=== PATIENT | female | born 1965 | race Caucasian/White ===

== ENCOUNTER 2016-09-28 14:55 | Emergency (ER) | payer OTHER ==
[2016-09-28 15:33] VITALS: BP 115/73; PULSE 75; TEMP 98.2; BMI 42.5
[2016-09-28] MEDS ORDERED: KETOROLAC TROMETHAMINE 60 MG/2 ML VIAL IM ONE (15:49)
--- NOTE | 2016-09-28 15:49 | PDOC ---
History of Present Illness - General Chief Complaint: Pain Stated Complaint: RT KNEE PAIN Time Seen by Provider: 09/28/16 15:23 History Source: Patient Exam Limitations: No Limitations - History of Present Illness Initial Comments: 09/28/16 15:57 09/28/16 15:59 Chief complaint: History of bilateral knee pain with cyst, pain worsening right knee since yesterday History of present illness: Patient is a 51-year-old female with a history of hypertension, obesity and bilateral cysts of meniscus here today due to worsening pain and right lateral knee since yesterday after twisting her knee while walking. Patient denies that knee gives out on her. Patient took acetaminophen yesterday. Patient reports that today pain is an 8 out of 10 aching in nature. Patient does not have any noticeable limp. Patient does not have any noticeable deformity of her right knee. Occurred: reports: yesterday (worse rt.knee) Severity: Yes: moderate Lower Extremity Pain Location: right: knee (lateral ) Method of Injury: Yes: twisted Modifying Factors: improves with: None Lower Ext. Injury Location - Specific Injury Location Knees: right pain (lateral) Extremity Pain Location - Extremity Pain Location Extremity Pain Locations: right: knee (lateral ) Past History - Past Medical History Allergies/Adverse Reactions: Allergies Allergy/AdvReac Type Severity Reaction Status Date / Time No Known Allergies Allergy Verified 09/28/16 15:07 Home Medications: Ambulatory Orders Naproxen [Naprosyn -] 500 mg PO BID PRN #14 tablet 09/28/16 HTN: Yes - Immunization History Immunization Up to Date: Yes - Psycho/Social/Smoking Cessation Hx Suicidal Ideation: No Smoking History: Never smoked Information on smoking cessation initiated: No Review of Systems - Review of Systems Able to Perform ROS?: Yes Constitutional: No: Symptoms Reported HEENTM: No: Symptoms Reported Respiratory: No: Symptoms reported Cardiac (ROS): No: Symptoms Reported ABD/GI: No: Symptoms Reported : No: Symptoms Reported Musculoskeletal: Yes: Joint Pain (rt. lateral knee pain worse since yesterday ) . No: Joint Swelling Integumentary: No: Symptoms Reported Neurological: No: Symptoms reported *Physical Exam - Vital Signs Last Vital Signs Temp Pulse Resp BP Pulse Ox 98.2 F 75 18 115/73 98 09/28/16 15:08 09/28/16 15:08 09/28/16 15:08 09/28/16 15:08 09/28/16 15:08 - Physical Exam General Appearance: Yes: Appropriately Dressed Respiratory/Chest: positive: Lungs Clear, Normal Breath Sounds. negative: Chest Tender, Respiratory Distress Cardiovascular: positive: Regular Rhythm, Regular Rate, S1, S2 Vascular Pulses: Dorsalis-Pedis (R): 4+ Extremity: positive: Normal Capillary Refill, Normal Inspection, Normal Range of Motion (with crepitus noted rt. medial knee), Tender (rt. lateral knee), Other (negative varus/valgus and posterior/anterior drawer rt. ). negative: Swelling Integumentary: positive: Normal Color Neurologic: positive: Alert, Normal Response, Responsive Deep Tendon Reflexes: Knee (L): 3+, Knee (R): 3+ Procedures - Consent Consent obtained: From Patient - Splinting Splint Location: Right: Knee Pre-Proc Neuro Vasc Exam: normal Ronald Bandage: 6" Complications: No Medical Decision Making - Medical Decision Making 09/28/16 16:01 Patient is a 51-year-old female with a history of hypertension, obesity and bilateral cysts of meniscus here today due to worsening pain and right lateral knee since yesterday after twisting her knee while walking. Patient denies that knee gives out on her. Patient took acetaminophen yesterday. Patient reports that today pain is an 8 out of 10 aching in nature. Patient does not have any noticeable limp. Patient does not have any noticeable deformity of her right knee. Worsening right knee pain Plan: X-ray right knee mild arthritis changes Toradol 60 mg IM now Naprosyn 500 mg twice a day when necessary for pain #14 tabs Follow up with ortho ronald wrap 6 inch rt. knee 09/28/16 16:24 09/28/16 16:25 09/28/16 16:27 *DC/Admit/Observation/Transfer Diagnosis at time of Disposition: Knee pain, right Qualifiers: Chronicity: unspecified Qualified Code(s): M25.561 - Pain in right knee - Discharge Dispostion Disposition: HOME Condition at time of disposition: Stable - Referrals Referrals: Jessica Harrell [Primary Care Provider] - Ar Schneider MD [Staff Physician] - - Patient Instructions Additional Instructions: Elevate right leg as much as possible Wear Ronald wrap during the day take off at night Avoid quick pivoting turns with your legs turn your whole torso interaction you are going and your legs Follow-up with orthopedist in 2 days Return to emergency room if symptoms worsen or new symptoms develop Patient voiced understanding of discharge instructions and all questions were answered
[2016-09-28] MEDS ORDERED: KETOROLAC TROMETHAMINE 60 MG/2 ML VIAL ONE (15:51)
== END 2016-09-28 16:42 | disposition home or self-care (01) ==
LOC: JER 14:55
PROC: 3E0233Z Introduction of Anti-inflammatory into Muscle, Percutaneous Approach (ICD-10-PCS; principal; 2016-09-28)
DX: M25.561 Pain in right knee (principal); I10 Essential (primary) hypertension; E66.9 Obesity, unspecified; Z68.41 Body mass index [BMI] 40.0-44.9, adult; M25.862 Other specified joint disorders, left knee; M25.861 Other specified joint disorders, right knee
CPT/HCPCS: 73562-TC-RT; 96372; 99281-25

== ENCOUNTER 2020-07-28 19:05 | Emergency (ER) | payer OTHER ==
[2020-07-28 19:35] VITALS: BP 103/71; PULSE 83; TEMP 98.3; BMI 33.1
[2020-07-28] MEDS ORDERED: CYCLOBENZAPRINE HCL 10 MG TABLET (FP) PO ONE (20:39)
[2020-07-28] MEDS ORDERED: IBUPROFEN 600 MG TABLET (FP) PO ONE ×2 (20:39→20:44)
[2020-07-28] MEDS ORDERED: CYCLOBENZAPRINE HCL 10 MG TABLET (FP) ONE (20:44)
== END 2020-07-28 21:47 | disposition home or self-care (01) ==
LOC: JER 19:05 → JERFT 19:05
DX: M62.838 Other muscle spasm (principal); S70.11XA Contusion of right thigh, initial encounter
CPT/HCPCS: 73552-TC-RT-FY; 99284-25

== ENCOUNTER 2023-11-15 18:38 | Emergency (ER) | payer OTHER ==
[2023-11-15 18:44] VITALS: BP 143/87; PULSE 83; RESP 18; TEMP 98.5; BMI 33.7
[2023-11-15] MEDS ORDERED: ACETAMINOPHEN 325 MG TABLET (FP) ONE (19:32)
[2023-11-15] MEDS ORDERED: DIPHTH,PERTUSS(ACELL),TET 0.5 ML DISP.SYRIN IM ONE (19:36)
[2023-11-15] MEDS: DIPHTH,PERTUSS(ACELL),TET 0.5 ML DISP.SYRIN IM ONE (19:39)
[2023-11-15] MEDS: ACETAMINOPHEN 325 MG TABLET (FP) PO ONE (19:40)
== END 2023-11-15 21:45 | disposition home or self-care (01) ==
LOC: JER 18:38
PROC: 3E0234Z Introduction of Serum, Toxoid and Vaccine into Muscle, Percutaneous Approach (ICD-10-PCS; principal; 2023-11-15)
DX: S00.83XA Contusion of other part of head, initial encounter (principal); Z23 Encounter for immunization; Y04.8XXA Assault by other bodily force, initial encounter; Y99.0 Civilian activity done for income or pay
CPT/HCPCS: 70450-TC; 70486-TC; 90715; 99284-25